=== PATIENT | female | born 1985 | race Caucasian/White ===

== ENCOUNTER 2018-05-14 20:01 | Emergency (ER) | payer SELFPAY ==
[~2018-05-14] VITALS: Ht 157.5 cm; Wt 59.0 kg
[2018-05-14 21:30] LABS: Basophils # (auto) 0 uL; Basophils % (auto) 0.2 % (0.0-2.0); Eosinophils # (auto) 0 uL; Hemoglobin 15.1 g/dL (12.2-16.2); Lymphocytes # (auto) 1.6 uL; Lymphocytes % (auto) 7.9 % (10.0-50.0); Mean Corpuscular Hemoglobin 31.8 pg (28.0-32.0); Mean Corpuscular Hgb Conc. 33.5 g/dL (32.0-36.0); Mean Corpuscular Volume 94.9 fL (80.0-100.0); Monocytes # (auto) 1.5 uL; Monocytes % (auto) 7.2 % (0.0-12.0); Neutrophils # (auto) 17.5 uL; Neutrophils % (auto) 84.7 % (37.0-80.0); Platelet Count (auto) 309 10^3/uL (140-450); Red Blood Cells 4.74 10^6/uL (4.0-5.20); Red Cell Distribution Width 13.1 % (11.8-14.3); White Blood Cell 20.7 10^3/uL (4.4-10.8)
[2018-05-14 21:49] LABS: Albumin 4.3 g/dL (3.4-5.0); BUN/Creatinine Ratio 17.6; Calcium 8.8 mg/dL (8.5-10.1); Magnesium 1.8 mg/dL (1.6-2.6)
[2018-05-14 21:52] LABS: Bilirubin, Total 0.8 mg/dL (0.2-1.0); Total Protein 7.7 g/dL (6.4-8.2)
[2018-05-14 21:59] LABS: Potassium 2.8 mmol/L (3.5-5.1)
[2018-05-14] MEDS: POTASSIUM CHL 20 Meq TABLET PO ONE (22:15)
[2018-05-15 06:18] VITALS: BP 106/68
== END 2018-05-15 06:27 | disposition home or self-care (01) ==
LOC: ER 20:01
CPT/HCPCS: 36415; 74176; 80053; 83690; 83735; 84702; 85025; 94761